=== PATIENT | female | born 1965 | race Caucasian/White ===

== ENCOUNTER 2018-03-21 12:47 | Emergency (ER) | payer MEDICAID ==
[~2018-03-21] VITALS: Ht 185.4 cm; Wt 105.7 kg
[~2018-03-21 12:47] MED LIST: DIAZ10TA PO; HYDR-3307 PO; INSU100I18 SQ; INSU100V8 SQ; LITH300T3 PO; LORA-446 PO; LORA1TAB PO; METF10002 PO; OXCA300T PO; OXYC-307 PO; PROM25SU34 PO; PROM25TA10 PO
[2018-03-21 12:48] VITALS: BP 135/76
[2018-03-21] MEDS ORDERED: SODIUM CHLORIDE FLUSH 10ML SYR IVF ONE (13:00)
[2018-03-21 13:30] LABS: BASOPHILS # (AUTO) 0.03 x10^3/uL (0-0.1); BASOPHILS % (AUTO) 1 % (0-1); EOSINOPHILS # (AUTO) 0.13 x10^3/uL (0-0.4); EOSINOPHILS % (AUTO) 2 % (1-7); LYMPHOCYTES # (AUTO) 1.89 x10^3/uL (1-3.4); LYMPHOCYTES % (AUTO) 27 % (22-44); MD NO; MEAN CORPUSCULAR HEMOGLOBIN 29.6 pg (27.0-34.8); MEAN CORPUSCULAR HGB CONC 33.9 g/dL (32.4-35.8); MEAN CORPUSCULAR VOLUME 87.3 fL (80-100); MONOCYTES # (AUTO) 0.51 x10^3/uL (0.2-0.8); MONOCYTES % (AUTO) 7 % (2-9); NEUTROPHILS # (AUTO) 4.56 x10^3/uL (1.8-6.8); NEUTROPHILS % (AUTO) 64 % (42-75); PLATELET COUNT 256 x10^3/uL (130-400); RED CELL DISTRIBUTION WIDTH 12.5 % (9.6-15.2)
[2018-03-21 13:41] LABS: ALANINE AMINOTRANSFERASE 32 U/L (12-78); ALBUMIN 3.2 g/dL (3.4-5.0); ANION GAP 3 mmol/L (5-15); CALCIUM 9.3 mg/dL (8.5-10.1); CHLORIDE 109 mmol/L (98-107)
[2018-03-21 13:43] LABS: ALKALINE PHOSPHATASE 87 U/L (45-117); BILIRUBIN,TOTAL 0.3 mg/dL (0.2-1.0); TOTAL PROTEIN 7.3 g/dL (6.4-8.2)
[2018-03-21] MEDS ORDERED: ACETAMINOPHEN 500 MG TABLET PO ONE (14:30)
[2018-03-21] MEDS ORDERED: OXYcodone 5 MG/5 ML ORAL.SOL UDC PO ONE (14:30)
== END 2018-03-21 15:52 | disposition home or self-care (01) ==
LOC: ED 15:40
DX: R60.0 Localized edema (principal); Z86.718 Personal history of other venous thrombosis and embolism; M19.90 Unspecified osteoarthritis, unspecified site; E11.9 Type 2 diabetes mellitus without complications; F31.9 Bipolar disorder, unspecified; F17.200 Nicotine dependence, unspecified, uncomplicated
CPT/HCPCS: 36415; 71046; 80053; 83880; 85025; 87040; 93970; 99285

== ENCOUNTER 2019-04-14 10:40 | Inpatient (IN) | payer MEDICAID ==
[~2019-04-14] VITALS: Ht 185.4 cm; Wt 97.2 kg
[2019-04-19 07:27] VITALS: BP 123/74
== END 2019-04-19 10:28 | disposition home or self-care (01) | DRG 753 ==
LOC: 3E 14:11
PROVIDERS: ADMIT Counselor Mental Health; ATTEND Counselor Mental Health
DX: F31.10 Bipolar disorder, current episode manic without psychotic features, unspecified (principal); F15.20 Other stimulant dependence, uncomplicated; E11.9 Type 2 diabetes mellitus without complications; F17.210 Nicotine dependence, cigarettes, uncomplicated; F41.9 Anxiety disorder, unspecified; G47.00 Insomnia, unspecified; G89.29 Other chronic pain; Z79.4 Long term (current) use of insulin; Z79.899 Other long term (current) drug therapy; Z83.3 Family history of diabetes mellitus; Z90.49 Acquired absence of other specified parts of digestive tract; Z88.5 Allergy status to narcotic agent; Z88.8 Allergy status to other drugs, medicaments and biological substances
CPT/HCPCS: 36415; 71045; 80048; 80061; 80307; 81001; 82140; 82607; 84439; 84443; 85025; 85651; 86592; 87086; 93005; Q0162